=== PATIENT | male | born 1940 | race Caucasian/White ===

== ENCOUNTER 2019-03-04 14:43 | Outpatient (REF) | payer MEDICARE, SELFPAY ==
[2019-03-04 20:10] LABS: HCT 38.2 % (40.0-50.0); HGB 11.9 g/dL (13.5-17.5); Mean Corp. HGB Concentration 31.2 g/dL (32.0-36.0); Mean Corpuscular Hemoglobin 28.4 pg (27.0-33.0); Mean Corpuscular Volume 91.2 fL (80-95); Mean Platelet Volume 11.9 fL (8.0-11.0); Platelet Count 198 x1000/uL (130-400); RBC 4.19 m/cumm (4.50-6.00); RBC Distribution Width 14.8 % (11.8-14.1); White Blood Cell Count 4.79 k/cumm (4.4-10.8)
[2019-03-04 20:39] LABS: Ferritin 14 ng/mL (26-388); Vitamin B12 1920 pg/mL (193-986)
[2019-03-06 13:36] LABS: IgA 218 mg/dL (85-499)
[2019-03-06 15:53] LABS: Albumin 56.4 % (55.8-66.1); Total Protein 6.6 g/dL (6.3-8.2)
[2019-03-06 22:04] LABS: Tissue Transglutaminase Ab IgA <1.2 U/mL; Tissue Transglutaminase Ab IgG 2.6 U/mL
== END 2019-03-04 15:03 ==
LOC: NCHCN 14:43
PROVIDERS: PCP Internal Medicine; Visit Provider Internal Medicine
DX: R79.0 Abnormal level of blood mineral (principal); R61 Generalized hyperhidrosis
CPT/HCPCS: 82784; 85027; 82607; 82728; 83516; 84165